=== PATIENT | male | born 1965 | race African-American/Black ===

== ENCOUNTER 2018-04-09 17:57 | Emergency (ER) | payer BC ==
[~2018-04-09] VITALS: Ht 177.8 cm; Wt 68.0 kg
--- NOTE | ~2018-04-09 | EKG ---
[address] [address] ELECTROCARDIOGRAM REPORT Name: LUCAS MCLEODNGELO [facility] #: [id number] Admission: 04/09/18 Attend Phys: Discharge: 04/09/18 Date of : 67 Report #: [id number] THIS REPORT FOR: //name// [facility] ED Test Date: 2018-04-09 Test Time: 18:44:00 Pat Name: LUCAS MCLEOD Department: Room: Gender: M [employer] Operator: DAWNA : 1965 Requested By: Shelia Valderrama Order Number: [id number] MD: Xavier Ferguson Measurements Intervals [place] Rate: 115 P: 62 MO: 154 QRS: 66 QRSD: 87 T: 20 QT: 300 QTc: 415 Interpretive Statements Sinus tachycardia Probable anterior infarct, old Nonspecific T abnormalities, lateral leads No previous ECG available for comparison Electronically Signed On 04-10-2018 16:06:10 [employer] by Xavier Ferguson [email or web address] <ELECTRONICALLY SIGNED> By: Xavier Ferguson MD, [facility] 04/10/18 1606 1844 1844 Xavier Ferguson MD, FACC /EPI
[~2018-04-09 17:57] MED LIST: NORCO 5-325 TA1 EACH PO
[2018-04-09 19:13] LABS: ABSOLUTE NEUTROPHILS 7.4 thou/uL (1.4-8.2); BASOPHILS 0.6 % (0.0-2.0); HEMATOCRIT 37.5 % (42.0-52.0); HEMOGLOBIN 12.8 gm/dL (14.0-18.0); LYMPHOCYTES 8.2 % (24.0-44.0); MCH 28.8 pg (26.0-34.0); MCHC 34.1 g/dL (28.0-37.0); MCV 84.3 fL (80.0-100.0); MONOCYTES 7.6 % (1.0-8.0); PLATELET COUNT 399 thou/uL (150-400); POLYS 83.6 % (36.0-66.0); RBC 4.45 mil/uL (4.50-6.00); RDW 13.7 % (10.5-14.5); WBC 8.9 thou/uL (4.0-11.0)
[2018-04-09 19:17] LABS: ANION GAP 12 mmol/L (7-16); BUN 17 mg/dL (7-18); CALCIUM 9.4 mg/dL (8.5-10.1); CHLORIDE 98 mmol/L (98-107); CO2 24 mmol/L (21-32); CREATININE 1.2 mg/dL (0.7-1.3); GLUCOSE 128 mg/dL (74-106); POTASSIUM 4.1 mmol/L (3.5-5.1); SODIUM 134 mmol/L (136-145)
[2018-04-09 19:25] LABS: ALBUMIN 2.7 g/dL (3.4-5.0); SGOT 44 U/L (15-37); SGPT 42 U/L (30-65); TOTAL BILIRUBIN 0.4 mg/dL (<0.1-1.0); TOTAL PROTEIN 8.3 g/dL (6.4-8.2); TROPONIN-I <0.06 ng/mL (<0.06)
[2018-04-09 19:30] LABS: BE(vivo) 0.8 mmol/L (-2 to +3); HCO3 24.2 mmol/L (22.0-26.0); PCO2 VENOUS 34.5 mmHg (41.0-51.0); PO2 VENOUS 23.5 mmHg (35.0-45.0)
[2018-04-09] MEDS ORDERED: AZITHROMYCIN 2250 MG PO (22:04)
[2018-04-09] MEDS ORDERED: PREDNISONE 20 M20 MG PO (22:04)
[2018-04-09 23:02] VITALS: BP 112/73
== END 2018-04-09 23:03 | disposition home or self-care (01) ==
LOC: ER 17:57
PROVIDERS: Student in an Organized Health Care Education/Training Program
DX: J18.8 Other pneumonia, unspecified organism (principal); J84.89 Other specified interstitial pulmonary diseases; R11.10 Vomiting, unspecified; J45.909 Unspecified asthma, uncomplicated; F17.210 Nicotine dependence, cigarettes, uncomplicated